=== PATIENT | male | born 1950 | race African-American/Black ===

== ENCOUNTER 2018-11-09 09:04 | Emergency (ER) | payer MEDICARE ==
--- NOTE | 2018-11-09 09:53 | ULT ---
FEXAM: Right lower extremity venous duplex: Deep veins evaluated with color Doppler, spectral analysis, and compression. INDICATIONS: Right lower extremity pain and edema. History of DVT FINDINGS: Deep veins interrogated include common femoral vein, femoral vein, popliteal vein, and post erior tibial vein. These veins show normal compression and blood flow. No evidence of DVT. IMPRESSION: Negative Right venous duplex exam.
== END 2018-11-09 10:07 | disposition home or self-care (01) ==
LOC: ERS 09:04
DX: M25.461 Effusion, right knee (principal); I10 Essential (primary) hypertension; E11.9 Type 2 diabetes mellitus without complications; Z86.718 Personal history of other venous thrombosis and embolism; Z79.84 Long term (current) use of oral hypoglycemic drugs